=== PATIENT | female | born 1935 | race Caucasian/White ===

== ENCOUNTER 2018-11-09 20:38 | Emergency (ER) | payer OTHER | END 2018-11-10 04:15 | disposition home or self-care (01) | LOC: JER 11-10 01:25 | DX: I47.1 Supraventricular tachycardia (principal); I10 Essential (primary) hypertension; Z86.011 Personal history of benign neoplasm of the brain ==

== ENCOUNTER 2019-03-12 07:59 | Inpatient (IN) | payer OTHER ==
[2019-03-12] MEDS ORDERED: SODIUM CHLORIDE 500 ML IV STA ×3 (08:45→12:35)
[2019-03-12 09:03] LABS: BASO % 0.3 % (0-2.0); HEMATOCRIT 39.9 % (32.4-45.2); HEMOGLOBIN 13.3 GM/dL (10.7-15.3); LYMPH % 14.2 % (8-40); MCH 32.2 pg (25.7-33.7); MCHC 33.3 g/dl (32.0-36.0); MEAN CELL VOLUME 96.6 fl (80-96); MEAN PLT VOLUME 10.1 fl (7.5-11.1); MONO % 7.8 % (3.8-10.2); NEUT % 76.7 % (42.8-82.8); PLATELET COUNT 186 K/MM3 (134-434); RBC 4.13 M/mm3 (3.60-5.2); RDW 14.2 % (11.6-15.6)
[2019-03-12 09:58] LABS: ALBUMIN 3.7 g/dl (3.4-5.0); BILIRUBIN,TOTAL 0.4 mg/dL (0.2-1); BLOOD UREA NITROGEN 24.8 mg/dL (7-18); CALCIUM 8.7 mg/dL (8.5-10.1); CREATININE 0.9 mg/dL (0.55-1.3); POTASSIUM 4.2 mmol/L (3.5-5.1); TOT PROT 6.7 g/dl (6.4-8.2)
[2019-03-12 09:59] LABS: PH,URINE 7.5 (5.0-8.0); URINE APPEARANCE CLEAR; URINE BILIRUBIN NEGATIVE (NEGATIVE); URINE COLOR YELLOW; URINE GLUCOSE (UA) NEGATIVE (NEGATIVE); URINE KETONE NEGATIVE (NEGATIVE); URINE LEUK ESTERASE NEGATIVE (NEGATIVE); URINE NITRITE NEGATIVE (NEGATIVE); URINE PROTEIN NEGATIVE (NEGATIVE); URINE UROBILINOGEN 0.2 mg/dL (0.2-1.0)
[2019-03-12] MEDS ORDERED: LOSARTAN POTASSIUM 50 MG TABLET (FP) PO ONE (12:24)
[2019-03-12] MEDS ORDERED: LOSARTAN POTASSIUM 50 MG TABLET (FP) ONE (12:45)
[2019-03-12] MEDS ORDERED: METOPROLOL TARTRATE 50 MG TABLET (FP) ONE (12:46)
--- NOTE | 2019-03-12 14:32 | EKG ---
Test Reason : Blood Pressure : / mmHG Vent. Rate : 084 BPM Atrial Rate : 084 BPM P-R Int : 186 ms QRS Dur : 092 ms QT Int : 374 ms P-R-T Axes : 048 -18 063 degrees QTc Int : 441 ms NORMAL SINUS RHYTHM NORMAL ECG WHEN COMPARED WITH ECG OF 09-NOV-2018 22:11, NO SIGNIFICANT CHANGE WAS FOUND Confirmed by CHELSIE HUNTER MD ([id number]) on 03/12/2019 2:31:44 PM Referred By: Confirmed By:CHELSIE HUNTER MD
--- NOTE | 2019-03-12 16:02 | PDOC ---
Documentation entered by Jasmin Ortega SCRIBE, acting as scribe for Yannick Dyson MD. Yannick Dyson MD: This documentation has been prepared by the Shnanon garcía Sammi, SCRIBE, under my direction and personally reviewed by me in its entirety. I confirm that the documentation accurately reflects all work, treatment, procedures, and medical decision making performed by me. History of Present Illness - General Chief Complaint: Injury Stated Complaint: FALL Time Seen by Provider: 03/12/19 08:10 - History of Present Illness Initial Comments: 03/12/19 09:11 The patient is an 84 year old female who was BIBA from [facility] for evaluation s/p fall this morning when getting out of bed with weakness and lightheadedness prior to incident. Denies LOC, head or neck trauma. She endorses another fall last week without evaluation. Medical history: HTN, meningioma PCP: Horace Past History - Past Medical History Allergies/Adverse Reactions: Allergies Allergy/AdvReac Type Severity Reaction Status Date / Time codeine Allergy Verified 03/12/19 08:12 Penicillins Allergy Verified 03/12/19 08:12 Home Medications: Ambulatory Orders Losartan Potassium [Cozaar] 100 mg PO DAILY 11/09/18 Metoprolol Succinate 50 mg PO DAILY 11/09/18 COPD: No HTN: Yes - Psycho Social/Smoking Cessation Hx Smoking History: Never smoked Have you smoked in the past 12 months: No Information on smoking cessation initiated: No Hx Alcohol Use: No Drug/Substance Use Hx: No Review of Systems - Review of Systems Comments:: 03/12/19 09:11 CONSTITUTIONAL: +weakness. No fever, no chills EYES: No visual changes ENT: No ear pain, no sore throat CARDIOVASCULAR: No chest pain, no palpitations RESPIRATORY: No cough, no SOB GI: No abdominal pain, no nausea, no vomiting, no constipation, no diarrhea GENITOURINARY: No dysuria, no frequency, no hematuria MUSKULOSKELETAL: +low back pain. +Right should pain. SKIN: No rash NEURO: +lightheaded. No headache *Physical Exam - Vital Signs Last Vital Signs Temp Pulse Resp BP Pulse Ox 97.4 F L 87 18 194/99 H 99 03/12/19 08:04 03/12/19 08:04 03/12/19 08:04 03/12/19 08:04 03/12/19 08:04 - Physical Exam Comments: 03/12/19 09:11 CONSTITUTIONAL: A&Ox3, Well-appearing; well-nourished; in no apparent distress HEAD: Normocephalic; atraumatic EYES: +mild ptosis left upper lid. PERRL; EOM intact ENMT: External appears normal; normal oropharynx NECK: Supple; non-tender; no cervical lymphadenopathy CARD: +2 of 6 ejection systolic murmur. Normal S1, S2; rubs, or gallops RESP: Normal chest excursion with respiration; breath sounds clear and equal bilaterally; no wheezes, rhonchi, or rales CHEST: +Reproducible left anterior chest wall tenderness, midclavicular line 3rd -4th intercostal space BACK: +Midline and paraspinal tenderness to L1-L4 ABD: Soft, non-distended; non-tender; no palpable organomegaly, no palpable hernias EXT: +left hip tenderness. Normal ROM in all four extremities; distal pulses intact SKIN: Warm, dry, no rash NEURO: Normal speech, cranial nerves II-XII intact, negative pronator drift, moving all extremities ED Treatment Course - LABORATORY CBC & Chemistry Diagram: 03/12/19 08:00 03/12/19 08:00 - ADDITIONAL ORDERS Additional order review: Laboratory Results 03/12/19 03/12/19 08:30 08:00 Sodium 143 Potassium 4.2 Chloride 106 Carbon Dioxide 31 Anion Gap 5 L BUN 24.8 H Creatinine 0.9 Est GFR (CKD-EPI)AfAm 67.10 Est GFR (CKD-EPI)NonAf 57.90 Random Glucose 99 Calcium 8.7 Total Bilirubin 0.4 AST 13 L ALT 12 L Alkaline Phosphatase 102 Creatine Kinase 66 Troponin I 0.07 H Total Protein 6.7 Albumin 3.7 Urine Color Yellow Urine Appearance Clear Urine pH 7.5 Ur Specific [place] 1.011 Urine Protein Negative Urine Glucose (UA) Negative Urine Ketones Negative Urine Blood Negative Urine Nitrite Negative Urine Bilirubin Negative Urine Urobilinogen 0.2 Ur Leukocyte Esterase Negative 03/12/19 08:00 RBC 4.13 MCV 96.6 H MCHC 33.3 RDW 14.2 MPV 10.1 Neutrophils % 76.7 D Lymphocytes % 14.2 D Monocytes % 7.8 Eosinophils % 1.0 Basophils % 0.3 - RADIOLOGY Radiology Studies Ordered: Category Date Time Status HEAD CT WITHOUT CONTRAST [CT] Stat CT Scan 03/12/19 15:50 Ordered CHEST - PA [RAD] Stat Radiology 03/12/19 08:44 Completed HIP & PELVIS-LEFT [RAD] Stat Radiology 03/12/19 08:44 Completed SPINE-LUMBAR SACRAL [RAD] Stat Radiology 03/12/19 08:44 Completed - Medications Given in the ED: ED Medications Discontinued Medications Generic Name Dose Route Start Last Admin Trade Name Freq PRN Reason Stop Dose Admin Sodium Chloride 500 mls @ 500 mls/hr 03/12/19 08:45 03/12/19 08:45 Normal Saline - IV 03/12/19 09:44 500 mls/hr ASDIR STA Administration Sodium Chloride 500 mls @ 500 mls/hr 03/12/19 11:20 03/12/19 12:51 Normal Saline - IV 03/12/19 12:19 500 mls/hr ASDIR STA Administration Sodium Chloride 500 mls @ 500 mls/hr 03/12/19 12:35 03/12/19 12:35 Normal Saline - IV 03/12/19 13:34 500 mls/hr ASDIR STA Administration Losartan Potassium 100 mg 03/12/19 12:24 03/12/19 12:51 Cozaar - PO 03/12/19 12:25 100 mg ONCE ONE Administration Metoprolol Succinate 50 mg 03/12/19 12:24 03/12/19 12:51 Toprol Xl - PO 03/12/19 12:25 50 mg ONCE ONE Administration Medical Decision Making - Medical Decision Making 03/12/19 16 Patient is an 84-year-old female with history of a large meningioma who presents to the ER after a fall preceded by symptoms of dizziness and lightheadedness. Patient denied LOC or head injury as a result of her fall. On initial evaluation, no focal neurological deficits were identified. Radiological studies revealed no evidence of LS spine or hip/pelvic injury. Patient received IV fluids and antihypertensive medications. On reassessment, patient reports that she is improved but is unable to stand on her own with an assistance of a walker. At this time, I will obtain repeat CT of head to evaluate for enlarged meningioma and or brain edema. Will admit. Discharge - Discharge Information Problems reviewed: Yes Clinical Impression/Diagnosis: Dizziness, Light-headedness, Meningioma Condition: Fair - Admission Yes - Follow up/Referral Referrals: Yoko Vu MD [Primary Care Provider] - - Patient Discharge Instructions - Post Discharge Activity
[2019-03-12] MEDS ORDERED: cloNIDine HCL 0.1 MG TABLET ONE (18:38)
[2019-03-12] MEDS ORDERED: cloNIDine HCL 0.1 MG TABLET PO ONE (19:25)
--- NOTE | 2019-03-12 19:45 | HP ---
Admitting History and Physical - Admission History of Present Illness: 03/12/19 09:11 The patient is an 84 year old female who was BIBA from [facility] for evaluation s/p fall this morning when getting out of bed with weakness and lightheadedness prior to incident. Denies LOC, head or neck trauma. She endorses another fall last week without evaluation. Patient well known to me - seen yesterday for follow up. Known to have large meningioma which has resulted in unsteady gait / loss of vision on left side and loss oh hearing onleft side . Evaluated by NS ( Dr Douglas ) approx 6 month ago and more [place] [facility]-- she has opted for no intervention as of yesterday, today open for consideration. She reports lightheadedness has been there prior to the fall but unable to say how long -- "I am always falling " Medical history: HTN, meningioma History Source: Patient, Medical Record Limitations to Obtaining History: Poor Historian - Past Medical History DATA PROCESSING EQUIPMENT REPAIRER: Yes: Other (meningioma with surrounding edema and hydrocephalus) Cardiovascular: Yes: HTN. No: OK Reproductive: Yes: Postmenopausal ...: No - Smoking History Smoking history: Never smoked Have you smoked in the past 12 months: No - Alcohol/Substance Use Hx Alcohol Use: No History of Substance Use: reports: None - Social History Usual Living Arrangement: Yes: Alone ADL: Independent History of Recent Travel: No Home Medications - Allergies Allergies/Adverse Reactions: Allergies Allergy/AdvReac Type Severity Reaction Status Date / Time codeine Allergy Verified 03/12/19 08:12 Penicillins Allergy Verified 03/12/19 08:12 - Home Medications Home Medications: Ambulatory Orders Losartan Potassium [Cozaar] 100 mg PO DAILY 11/09/18 Metoprolol Succinate 50 mg PO DAILY 11/09/18 Amlodipine Besylate [Norvasc -] 5 mg PO DAILY 30 Days #30 tablet 03/18/19 Carbamazepine [Tegretol -] 100 mg PO BID-MID 30 Days #90 tab.chew 03/18/19 Dexamethasone [Decadron -] 4 mg PO BID 7 Days #20 tablet 03/18/19 Pantoprazole Sodium [Protonix] 40 mg PO DAILY 30 Days #30 tablet. 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 HENT: reports: Hearing Loss (on left side) Neck: reports: No Symptoms Cardiovascular: reports: No Symptoms Respiratory: reports: No Symptoms Gastrointestinal: reports: No Symptoms Genitourinary: reports: No Symptoms Breasts: reports: No Symptoms Reported Musculoskeletal: reports: Muscle Weakness Integumentary: reports: No Symptoms Neurological: reports: Change in Speech, Incoordination, Pre-Existing Deficit, Unsteady Gait, Weakness Endocrine: reports: No Symptoms Hematology/Lymphatic: reports: No Symptoms Psychiatric: reports: Depression Physical Examination Vital Signs: Vital Signs Temperature 97.1 F L 03/12/19 17:59 Pulse Rate 72 03/12/19 17:59 Respiratory Rate 17 03/12/19 17:59 Blood Pressure 207/97 H 03/12/19 17:59 O2 Sat by Pulse Oximetry (%) 97 03/12/19 17:59 Constitutional: Yes: Well Nourished, No Distress, Calm Eyes: Yes: Conjunctiva Clear, EOM Intact HENT: Yes: Atraumatic, Normocephalic Neck: Yes: Supple, Trachea Midline Cardiovascular: Yes: Regular Rate and Rhythm Respiratory: Yes: Regular, CTA Bilaterally Gastrointestinal: Yes: Normal Bowel Sounds, Soft ...Rectal Exam: Yes: Deferred Renal/: Yes: WNL Breast(s): Yes: WNL Musculoskeletal: Yes: Muscle Weakness Extremities: Yes: WNL. No: Deformity Edema: No Peripheral Pulses WNL: Yes Integumentary: Yes: WNL Neurological: Yes: Alert, Oriented, Confusion, Loss of Sensation, Pre-Existing Deficit, Unsteady Gait Psychiatric: Yes: Alert, Oriented Labs: CBC, BMP 03/12/19 08:00 03/12/19 08:00 Impression: No definite interval change is noted. 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 Associated mass effect is seen upon the tyron and midbrain. Edema is again visualized within the tyron, midbrain and left inferior thalamus. Prominent ventricular dilatation is noted probably representing a combination of obstructive hydrocephalus and ex vacuo dilatation. Periventricular hypodensity is again seen probably representing a combination of edema secondary to transependymal resorption of cerebrospinal fluid on the basis of obstructive hydrocephalus and chronic microvascular ischemic changes Problem List - Problems (1) Hypertension Code(s): I10 - ESSENTIAL (PRIMARY) HYPERTENSION (2) Dizziness Code(s): R42 - DIZZINESS AND GIDDINESS (3) Light-headedness Code(s): R42 - DIZZINESS AND GIDDINESS (4) Meningioma Code(s): D32.9 - BENIGN NEOPLASM OF MENINGES, UNSPECIFIED Assessment/Plan The patient is an 84 year old female who was BIBA from [facility] for evaluation s/p fall morning of admission, when getting out of bed with weakness and lightheadedness prior to incident. Denies LOC, head or neck trauma. She endorses another fall last week without evaluation. She has a hx of multiple falls. Patient well known to me - seen day prior to admission for follow up; Known to have large meningioma which has resulted in unsteady gait / loss of vision on left side and loss oh hearing on left side . Evaluated by NS ( Dr Douglas ) approx 6 month ago and more recently [place] [facility] [place]-- she has opted for no intervention. 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
[2019-03-13 00:05] VITALS: BMI 26.4
[2019-03-13 07:42] LABS: HEMATOCRIT 35.1 % (32.4-45.2); HEMOGLOBIN 11.9 GM/dL (10.7-15.3); MCH 32.4 pg (25.7-33.7); MCHC 33.9 g/dl (32.0-36.0); MEAN CELL VOLUME 95.6 fl (80-96); MEAN PLT VOLUME 10.1 fl (7.5-11.1); PLATELET COUNT 162 K/MM3 (134-434); RBC 3.67 M/mm3 (3.60-5.2); RDW 14.1 % (11.6-15.6); WHITE BLOOD COUNT 3.7 K/mm3 (4.0-10.0)
[2019-03-13 08:23] LABS: BLOOD UREA NITROGEN 17.8 mg/dL (7-18); CALCIUM 8.4 mg/dL (8.5-10.1); CREATININE 0.8 mg/dL (0.55-1.3); MAGNESIUM 2.1 mg/dL (1.8-2.4); POTASSIUM 3.7 mmol/L (3.5-5.1)
--- NOTE | 2019-03-13 09:49 | PN ---
Progress Note (short form) - Note Progress Note: 84 y/o femlae BIBA from [facility] s/p fall / dizziness. Denies pain and dizziness at this time. Vital Signs Period Temp Pulse Resp BP Sys/Becerra Pulse Ox Last 24 Hr 97.1 F-98.9 F 65-80 17-20 131-207/67-97 97-98 CBC, BMP 03/13/19 07:00 03/13/19 07:00 HEENT- NL Neck- Supple Lungs- CTAB Heart- S1/S2 Abd- Soft, NT Ext- No LE edema Active Medications Losartan Potassium (Losartan Potassium) 100 mg PO DAILY THERESA Metoprolol Succinate (Toprol Xl -) 50 mg PO DAILY THERESA #HTN - BP stable - Continue BB and ARB #Fall/ Dizziness/ Meningioma - Monitor dizziness - Neuro consult - PT eval -UA neg Problem List - Problems (1) Hypertension Code(s): I10 - ESSENTIAL (PRIMARY) HYPERTENSION (2) Dizziness Code(s): R42 - DIZZINESS AND GIDDINESS (3) Light-headedness Code(s): R42 - DIZZINESS AND GIDDINESS (4) Meningioma Code(s): D32.9 - BENIGN NEOPLASM OF MENINGES, UNSPECIFIED
[2019-03-13] MEDS ORDERED: PT OWN MED DRAWER 7, Y5N ONE (09:56)
[2019-03-13] MEDS ORDERED: LOSARTAN POTASSIUM 100 MG TABLET PO SCH (10:00)
[2019-03-13] MEDS: LOSARTAN POTASSIUM 50 MG TABLET (FP) PO SCH (11:19)
[2019-03-13] MEDS ORDERED: cloNIDine HCL 0.1 MG TABLET PO ONE (14:40)
[2019-03-13] MEDS: amLODIPine BESYLATE 5 MG TABLET (FP) PO SCH (18:07)
[2019-03-14 08:02] LABS: BASO % 0.8 % (0-2.0); EOS % 3.4 % (0-4.5); HEMATOCRIT 37.2 % (32.4-45.2); HEMOGLOBIN 12.7 GM/dL (10.7-15.3); MCH 32.4 pg (25.7-33.7); MCHC 34.1 g/dl (32.0-36.0); MEAN CELL VOLUME 95.1 fl (80-96); MEAN PLT VOLUME 9.6 fl (7.5-11.1); MONO % 8.5 % (3.8-10.2); NEUT % 56.3 % (42.8-82.8); PLATELET COUNT 170 K/MM3 (134-434); RBC 3.92 M/mm3 (3.60-5.2); RDW 13.6 % (11.6-15.6); WHITE BLOOD COUNT 4.4 K/mm3 (4.0-10.0)
[2019-03-14 08:25] LABS: BLOOD UREA NITROGEN 20.9 mg/dL (7-18); CALCIUM 8.9 mg/dL (8.5-10.1); CREATININE 0.8 mg/dL (0.55-1.3)
[2019-03-14] MEDS: amLODIPine BESYLATE 5 MG TABLET (FP) PO SCH (10:12)
[2019-03-14] MEDS: LOSARTAN POTASSIUM 50 MG TABLET (FP) PO SCH (10:13)
--- NOTE | 2019-03-14 11:17 | PN ---
Progress Note (short form) - Note Progress Note: 84 y/o female found sitting in bed. Denies pain and dizziness. Vital Signs Period Temp Pulse Resp BP Sys/Becerra Pulse Ox Last 24 Hr 97.6 F-98.9 F 63-87 18-20 130-201/56-94 98 CBC, BMP 03/14/19 07:33 03/14/19 07:33 HENT- NL Neck- Trachea midline Lungs- CTAB Heart- S1/S2 Abd- soft, Nt Ext- No LE edema Active Medications Amlodipine Besylate (Norvasc -) 5 mg PO DAILY [facility] Last Admin: 03/14/19 10:12 Dose: 5 mg Losartan Potassium (Cozaar -) 100 mg PO DAILY [facility] Last Admin: 03/14/19 10:13 Dose: 100 mg Metoprolol Succinate (Toprol Xl -) 50 mg PO DAILY [facility] Last Admin: 03/14/19 10:14 Dose: 50 mg #HTN - BP stable - Continue home meds #Fall/ Dizziness/ Meningioma - Neuro consult - PT eval - UA neg/ C& S neg Problem List - Problems (1) Hypertension Code(s): I10 - ESSENTIAL (PRIMARY) HYPERTENSION (2) Dizziness Code(s): R42 - DIZZINESS AND GIDDINESS (3) Light-headedness Code(s): R42 - DIZZINESS AND GIDDINESS (4) Meningioma Code(s): D32.9 - BENIGN NEOPLASM OF MENINGES, UNSPECIFIED
--- NOTE | 2019-03-14 16:39 | CON.NEURO ---
Consult - History of Present Illness History of Present Illness: 84 year old female who was BIBA from [facility] for evaluation s/p fall this morning when getting out of bed with weakness and lightheadedness prior to incident. Denies LOC, head or neck trauma. She endorses another fall last week without evaluation. Patie Known to have large meningioma which has resulted in unsteady gait / loss of vision on left side and loss oh hearing onleft side . Evaluated by NS ( Dr Douglas ) approx 6 month ago and more recently at [facility] [place]pt and neurology-- ( last week) it was dsicussed with her with that team that surgical options would not be safe option given age etc. She does states that she is getting more electric pains to the left face and lost her hearing L ear inb last 6 months, Impression: No definite interval change is noted. 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 Associated mass effect is seen upon the tyron and midbrain. Edema is again visualized within the tyron, midbrain and left inferior thalamus. Prominent ventricular dilatation is noted probably representing a combination of obstructive hydrocephalus and ex vacuo dilatation. 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 No: DE ...: No - Alcohol/Substance Use Hx Alcohol Use: No History of Substance Use: reports: None - Smoking History Smoking history: Never smoked Have you smoked in the past 12 months: No - Social History ADL: Independent History of Recent Travel: No Home Medications - Allergies Allergies/Adverse Reactions: Allergies Allergy/AdvReac Type Severity Reaction Status Date / Time codeine Allergy Verified 03/12/19 08:12 Penicillins Allergy Verified 03/12/19 08:12 - Home Medications Home Medications: Ambulatory Orders Losartan Potassium [Cozaar] 100 mg PO DAILY 11/09/18 Metoprolol Succinate 50 mg PO DAILY 11/09/18 Physical Exam-Neuro Vital Signs: Vital Signs Temperature 98.6 F 03/14/19 13:43 Pulse Rate 71 03/14/19 13:43 Respiratory Rate 18 03/14/19 13:43 Blood Pressure 162/71 03/14/19 13:43 O2 Sat by Pulse Oximetry (%) 98 03/13/19 21:00 Labs: CBC, BMP 03/14/19 07:33 03/14/19 07:33 - Neuro Exam Level Of Consciousness: Yes: Alert (awake, alert, H /L L, mild left facial, V2 sensitivity L, no focal weakness, reflexes symmetric) Problem List - Problems (1) Gait abnormality Code(s): R26.9 - UNSPECIFIED ABNORMALITIES OF GAIT AND MOBILITY (2) Meningioma Code(s): D32.9 - BENIGN NEOPLASM OF MENINGES, UNSPECIFIED Assessment/Plan 84 year old female who was BIBA from [facility] for evaluation s/p fall this morning when getting out of bed with weakness and lightheadedness prior to incident. Denies LOC, head or neck trauma. She endorses another fall last week without evaluation. Patie Known to have large meningioma which has resulted in unsteady gait / loss of vision on left side and loss oh hearing onleft side . Evaluated by NS ( Dr Douglas ) approx 6 month ago and more recently at [facility] [place] dept and neurology-- ( last week) it was dsicussed with her with that team that surgical options would not be safe option given age etc. She does states that she is getting more electric pains to the left face and lost her hearing L ear inb last 6 months, Impression: No definite interval change is noted. 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 Associated mass effect is seen upon the tyron and midbrain. Edema is again visualized within the tyron, midbrain and left inferior thalamus. Prominent ventricular dilatation is noted probably representing a combination of obstructive hydrocephalus and ex vacuo dilatation. Periventricular hypodensity is again seen probably representing a combination of edema secondary to transependymal resorption of cerebrospinal fluid on the basis of obstructive hydrocephalus and chronic microvascular ischemic changes AP : progressive trigeminal cistern meningioma L side with resultant deficits in gait, CN 5/7/8 involvement and possible mild obstructive hydrocephalus. GIven that she has a recent surgical opinion do not think another surgical opinion is necessary>unfortunately her gait issues may be from a component of hydrocephalus --though that not even be a not an ideal solution and has it own complication rate. She admits she does try to do things and maneuver more than she should and some of her safety issues may lie in her using a wheelchair , less bending etc.. Can try low dose pulse decadron to see if may relief some pressure off the tyron/ brainstem. Also can add low dose tegtretol for trigeminal pain . DR LANGSTON
[2019-03-15 08:27] LABS: ALBUMIN 3.2 g/dl (3.4-5.0); BILIRUBIN,TOTAL 0.5 mg/dL (0.2-1); BLOOD UREA NITROGEN 27.6 mg/dL (7-18); CALCIUM 8.7 mg/dL (8.5-10.1); CREATININE 0.9 mg/dL (0.55-1.3); POTASSIUM 4.2 mmol/L (3.5-5.1); TOT PROT 5.9 g/dl (6.4-8.2)
[2019-03-15] MEDS ORDERED: PT OWN MED DRAWER 7, Y5N ONE ×5 (09:06→22:10)
[2019-03-15] MEDS: amLODIPine BESYLATE 5 MG TABLET (FP) PO SCH (09:09)
[2019-03-15] MEDS: LOSARTAN POTASSIUM 50 MG TABLET (FP) PO SCH (09:10)
[2019-03-15] MEDS: carBAMazepine 100 MG TAB.CHEW PO SCH ×2 (11:32→18:37)
--- NOTE | 2019-03-15 13:45 | DS ---
Physical Examination Vital Signs: Vital Signs Temperature 98.1 F 03/15/19 09:02 Pulse Rate 80 03/15/19 09:02 Respiratory Rate 20 03/15/19 09:02 Blood Pressure 135/76 03/15/19 09:02 O2 Sat by Pulse Oximetry (%) 97 03/15/19 10:15 Findings/Remarks: The patient is an 84 year old female who was BIBA from [facility] for evaluation s/p fall this morning when getting out of bed with weakness and lightheadedness prior to incident. Denies LOC, head or neck trauma. She endorses another fall last week without evaluation. Patient well known to me - seen yesterday for follow up. Known to have large meningioma which has resulted in unsteady gait / loss of vision on left side and loss oh hearing onleft side . Evaluated by [facility] ( Dr Douglas ) approx 6 month ago and more recently at [facility] and neurology-- she has opted for no intervention as of yesterday, today open for consideration. She reports lightheadedness has been there prior to the fall but unable to say how long -- "I am always falling " Patient evaluated by neurology -- case discussed with Dr stroud, will start treatment treatment for trigeminal neuralgia however no intervention for menegioma. clinical exam today is at baseline -- unsteady gait, requires walker / no hearing from Left side and no vision from left side. -- she is oriented and able to express her wishes. Impression: No definite interval change is noted. 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 Associated mass effect is seen upon the tyron and midbrain. Edema is again visualized within the tyron, midbrain and left inferior thalamus. Prominent ventricular dilatation is noted probably representing a combination of obstructive hydrocephalus and ex vacuo dilatation. Periventricular hypodensity is again seen probably representing a combination of edema secondary to transependymal resorption of cerebrospinal fluid on the basis of obstructive hydrocephalus and chronic microvascular ischemic changes Per neurology -- Dr Stroud AP : progressive trigeminal cistern meningioma L side with resultant deficits in gait, CN 5/7/8 involvement and possible mild obstructive hydrocephalus. GIven that she has a recent surgical opinion do not think another surgical opinion is necessary>unfortunately her gait issues may be from a component of hydrocephalus --though that not even be a not an ideal solution and has it own complication rate. She admits she does try to do things and maneuver more than she should and some of her safety issues may lie in her using a wheelchair , less bending etc.. Can try low dose pulse decadron to see if may relief some pressure off the tyron/ brainstem. Also can add low dose tegtretol for trigeminal pain . Constitutional: Yes: Well Nourished, No Distress, Calm, Other (facial asymmetry) Eyes: Yes: Conjunctiva Clear, EOM Intact HENT: Yes: Atraumatic, Normocephalic Neck: Yes: Supple, Trachea Midline Cardiovascular: Yes: Regular Rate and Rhythm Respiratory: Yes: CTA Bilaterally Gastrointestinal: Yes: Normal Bowel Sounds, Soft ...Rectal Exam: Yes: Deferred Renal/: Yes: WNL Breast(s): Yes: WNL Musculoskeletal: Yes: Muscle Weakness, Other (lack of balance / unsteady /lack of coordination) Extremities: No: Deformity Edema: No Peripheral Pulses WNL: Yes Integumentary: Yes: WNL Neurological: Yes: Alert, Oriented, Ataxia, Facial Droop, Pre-Existing Deficit, Unsteady Gait Psychiatric: Yes: Alert, Oriented Labs: CBC, BMP 03/14/19 07:33 03/15/19 07:10 Discharge Summary Problems reviewed: Yes Reason For Visit: DIZZINESS MENINGIOMA Current Active Problems Dizziness (Acute) Gait abnormality (Acute) Hypertension (Acute) Light-headedness (Acute) Meningioma (chronic Acute) Hospital Course: uncompluicated - no improvement of symptoms neurology evaluation no surgical intervention Patient declines more assistance at home due to cost Condition: Fair - Instructions Disposition: HOME - Home Medications Comprehensive Discharge Medication List: Ambulatory Orders Losartan Potassium [Cozaar] 100 mg PO DAILY 11/09/18 Metoprolol Succinate 50 mg PO DAILY 11/09/18 amlodipine 5 mg q day -- new medication
[2019-03-15] MEDS: DEXAMETHASONE 4 MG TABLET (FP) PO SCH ×2 (15:25→22:10)
[2019-03-16] MEDS: DEXAMETHASONE 4 MG TABLET (FP) PO SCH ×3 (06:20→21:45)
[2019-03-16] MEDS ORDERED: PT OWN MED DRAWER 7, Y5N ONE (09:24)
[2019-03-16] MEDS: amLODIPine BESYLATE 5 MG TABLET (FP) PO SCH (09:44)
[2019-03-16] MEDS: LOSARTAN POTASSIUM 50 MG TABLET (FP) PO SCH (09:44)
[2019-03-16] MEDS: carBAMazepine 100 MG TAB.CHEW PO SCH ×2 (09:44→17:56)
--- NOTE | 2019-03-16 13:53 | PN ---
Progress Note (short form) - Note Progress Note: patient seen andexamined in room /sitting in chair / slumped to right side + facial droop / admits needs more help and is lightheaded when ambulating agrees to STR at this time Vital Signs Period Temp Pulse Resp BP Sys/Becerra Pulse Ox Last 24 Hr 97.7 F-98.7 F 69-76 20-20 140-166/75-96 98-100 HEENT facial asymmetry / speech grossly clear oriented X3 neck supple heart S1/S2 reg lungs clear bilat abs soft non tender ext no edema CBC, BMP 03/14/19 07:33 03/15/19 07:10 Microbiology 03/12/19 08:30 Urine - Urine Clean Catch Urine Culture - Final Normal Urogenital Mirela Active Medications Amlodipine Besylate (Norvasc -) 5 mg PO DAILY [facility] Last Admin: 03/16/19 09:44 Dose: 5 mg Carbamazepine (Tegretol -) 100 mg PO BID-MID [facility] Last Admin: 03/16/19 09:44 Dose: 100 mg Dexamethasone (Decadron -) 4 mg PO TID [facility] Last Admin: 03/16/19 06:20 Dose: 4 mg Losartan Potassium (Cozaar -) 100 mg PO DAILY [facility] Last Admin: 03/16/19 09:44 Dose: 100 mg Metoprolol Succinate (Toprol Xl -) 50 mg PO DAILY [facility] Last Admin: 03/16/19 09:44 Dose: 50 mg # 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 / vision / hearing ( left side ) appreciate Neuro consult -- now on tegretol and decadron reports no improvement [facility] will require wheelchair for safety if no improvement with PT # HTN amlodipine added - improved Bp control continue with Losartan and metoprolol will contact daughter to discuss options for STR and safer d/c -- possible [facility] plans consider re visiting surgical options Problem List - Problems (1) Hypertension Code(s): I10 - ESSENTIAL (PRIMARY) HYPERTENSION (2) Dizziness Code(s): R42 - DIZZINESS AND GIDDINESS (3) Light-headedness Code(s): R42 - DIZZINESS AND GIDDINESS (4) Meningioma Code(s): D32.9 - BENIGN NEOPLASM OF MENINGES, UNSPECIFIED
[2019-03-17] MEDS: DEXAMETHASONE 4 MG TABLET (FP) PO SCH ×3 (05:37→22:07)
[2019-03-17] MEDS: amLODIPine BESYLATE 5 MG TABLET (FP) PO SCH (10:46)
[2019-03-17] MEDS: LOSARTAN POTASSIUM 50 MG TABLET (FP) PO SCH (10:46)
[2019-03-17] MEDS: carBAMazepine 100 MG TAB.CHEW PO SCH ×2 (10:47→17:55)
[2019-03-17] MEDS ORDERED: PT OWN MED DRAWER 7, Y5N ONE ×3 (14:40→17:29)
[2019-03-18] MEDS: DEXAMETHASONE 4 MG TABLET (FP) PO SCH ×2 (06:59→14:02)
[2019-03-18] MEDS ORDERED: PT OWN MED DRAWER 7, Y5N ONE (07:16)
[2019-03-18] MEDS: LOSARTAN POTASSIUM 50 MG TABLET (FP) PO SCH (09:33)
[2019-03-18] MEDS: carBAMazepine 100 MG TAB.CHEW PO SCH (09:33)
[2019-03-18] MEDS: amLODIPine BESYLATE 5 MG TABLET (FP) PO SCH (09:33)
--- NOTE | 2019-03-18 11:34 | PN ---
Progress Note (short form) - Note Progress Note: patient seen and examined in room laying in bed comfortable easily confused Vital Signs Period Temp Pulse Resp BP Sys/Becerra Pulse Ox Last 24 Hr 97.7 F-98.7 F 69-76 20-20 140-166/75-96 98-100 HEENT facial asymmetry / facial droop / speech grossly clear oriented X3 neck supple heart S1/S2 reg lungs clear bilat abs soft non tender ext no edema CBC, BMP 03/14/19 07:33 03/15/19 07:10 Microbiology 03/12/19 08:30 Urine - Urine Clean Catch Urine Culture - Final Normal Urogenital Mirela Active Medications Amlodipine Besylate (Norvasc -) 5 mg PO DAILY [facility] Last Admin: 03/16/19 09:44 Dose: 5 mg Carbamazepine (Tegretol -) 100 mg PO BID-MID [facility] Last Admin: 03/16/19 09:44 Dose: 100 mg Dexamethasone (Decadron -) 4 mg PO TID [facility] Last Admin: 03/16/19 06:20 Dose: 4 mg Losartan Potassium (Cozaar -) 100 mg PO DAILY [facility] Last Admin: 03/16/19 09:44 Dose: 100 mg Metoprolol Succinate (Toprol Xl -) 50 mg PO DAILY [facility] Last Admin: 03/16/19 09:44 Dose: 50 mg # 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 / vision / hearing ( left side ) appreciate Neuro consult -- now on tegretol and decadron reports no improvement [facility] will require wheelchair for safety if no improvement with PT # HTN amlodipine added - improved Bp control continue with Losartan and metoprolol will contact daughter to discuss options for STR and safer d/c -- 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
--- NOTE | 2019-03-18 12:46 | PN ---
Progress Note (short form) - Note Progress Note: POC discussed with daughter Luz Walls # [phone] agrees with STR and understands need for reconditioning / safe parameters for ADLs prior to return to [facility] Vital Signs Period Temp Pulse Resp BP Sys/Becerra Pulse Ox Last 24 Hr 97.7 F-98.7 F 69-76 20-20 140-166/75-96 98-100 HEENT facial asymmetry / speech grossly clear oriented X3 , forgetful neck supple heart S1/S2 reg lungs clear bilat abs soft non tender ext no edema CBC, BMP 03/14/19 07:33 03/15/19 07:10 Microbiology 03/12/19 08:30 Urine - Urine Clean Catch Urine Culture - Final Normal Urogenital Mirela Active Medications Amlodipine Besylate (Norvasc -) 5 mg PO DAILY [facility] Last Admin: 03/18/19 09:33 Dose: 5 mg Carbamazepine (Tegretol -) 100 mg PO BID-MID [facility] Last Admin: 03/18/19 09:33 Dose: 100 mg Dexamethasone (Decadron -) 4 mg PO TID [facility] Last Admin: 03/18/19 06:59 Dose: 4 mg Losartan Potassium (Cozaar -) 100 mg PO DAILY [facility] Last Admin: 03/18/19 09:33 Dose: 100 mg Metoprolol Succinate (Toprol Xl -) 50 mg PO DAILY [facility] Last Admin: 03/18/19 09:33 Dose: 50 mg # 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 arrangements for transfer -probably today Problem List - Problems (1) Hypertension Code(s): I10 - ESSENTIAL (PRIMARY) HYPERTENSION (2) Dizziness Code(s): R42 - DIZZINESS AND GIDDINESS (3) Light-headedness Code(s): R42 - DIZZINESS AND GIDDINESS (4) Meningioma Code(s): D32.9 - BENIGN NEOPLASM OF MENINGES, UNSPECIFIED
[2019-03-18 16:33] VITALS: BP 153/89; PULSE 78; TEMP 98.7
== END 2019-03-18 17:33 | DRG 54 ==
LOC: JER 07:59 → JERBED 16:02 → J5S 16:39 → JSAMEDAYSX 16:57 → JERBED 18:04 → J5S 22:25
PROVIDERS: ADMIT Family Medicine; ATTEND Family Medicine
DX: D32.9 Benign neoplasm of meninges, unspecified (principal); G93.6 Cerebral edema; G91.1 Obstructive hydrocephalus; R42 Dizziness and giddiness; I10 Essential (primary) hypertension; G50.0 Trigeminal neuralgia; R29.810 Facial weakness
CPT/HCPCS: 36415; 70450-TC; 71045-TC-FY; 72100-TC-FY; 73523-TC-FY; 80048; 80053; 81003; 82550; 83735; 84443; 84484; 85025; 85027; 87086; 93005; 93010; 97116-GP; 97162-GP; 99283-25; J0735

== ENCOUNTER 2019-03-27 14:36 | Emergency (ER) | payer OTHER ==
--- NOTE | 2019-03-27 15:03 | PDOC ---
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 Reports that she has not had a bowel movement in 2 days, and was straining to try and go earlier today when she develop dizziness like "everything was spinning". This immediately resolved once she stopped straining. However, at some point (uncertain what relation there was to straining), patient passed out in bed, then woke up. Patient is unsure how long she was out for, but she guesses about a minute. Not sure if she fell or hit her head. Not having any current dizziness. Was unable to have bowel movement. Abdominal pain is worsened with palpation, but not by straining. Patient specifically denies CP, SOB, fevers/chills, N/V, urinary changes. Endorses chronic headaches. Past History - Past Medical History Allergies/Adverse Reactions: Allergies Allergy/AdvReac Type Severity Reaction Status Date / Time codeine Allergy Verified 03/12/19 08:12 Penicillins Allergy Verified 03/12/19 08:12 Home Medications: Ambulatory Orders Losartan Potassium [Cozaar] 100 mg PO DAILY 11/09/18 Metoprolol Succinate 50 mg PO DAILY 11/09/18 Amlodipine Besylate [Norvasc -] 5 mg PO DAILY 30 Days #30 tablet 03/18/19 Carbamazepine [Tegretol -] 100 mg PO BID-MID 30 Days #90 tab.chew 03/18/19 Omeprazole 40 mg PO DAILY 03/27/19 COPD: No HTN: Yes - Psycho Social/Smoking Cessation Hx Smoking History: Never smoked Have you smoked in the past 12 months: No Hx Alcohol Use: No Drug/Substance Use Hx: No Substance Use Type: None Hx Substance Use Treatment: No Review of Systems - Review of Systems Constitutional: No: Chills, Diaphoresis, Fever HEENTM: Yes: Blurred Vision (L eye, 2/2 meningioma), Hearing Loss (L ear, 2/2 meningioma) Respiratory: No: Cough, Shortness of Breath ABD/GI: Yes: Constipated (2 days). No: Abdominal Distended, Diarrhea, Nausea, Rectal Bleeding, Vomiting : No: Burning, Dysuria, Discharge, Frequency, Flank Pain, Hematuria Musculoskeletal: No: Back Pain, Neck Pain Neurological: No: Headache, Numbness, Tingling, Weakness *Physical Exam - Physical Exam Comments: 03/27/19 15:48 Gen: well-developed, well-nourished, NAD Neuro: AAOX4, reduced hearing and vision on L side, SILT, CN II-XII otherwise intact HEENT: atraumatic, prior craniotomy with incompletely melded skull, dry mucous membranes Neck: trachea midline, supple CV: regular rate, regular rhythm, no murmurs, rubs, or gallops Pulm: CTA b/l, no wheezing Abd: soft, non-distended, periumbilical and suprapubic tenderness MSK: full ROM, intact pulses Extr: no edema, no deformities Skin: warm, dry, multiple patchy skin changes ED Treatment Course - LABORATORY CBC & Chemistry Diagram: 03/27/19 16:40 03/27/19 16:40 Medical Decision Making - Medical Decision Making 03/27/19 15:59 Concern for syncope 2/2 cardiac etiology v seizure v worsening meningioma. - CBC, CMP, trop - EKG, CXRport - UA/UC - DX abdomen to look for stool burden - CT head non con - likely admit 03/27/19 16:36 EKG at 73 bpm, normal sinus, poor baseline, no ST segment elevation or T wave inversions 03/27/19 17:43 CXR without acute pathology, similar to prior, DX abdomen without significant stool burden. 03/27/19 17:44 WBC 12.3, CBC and CMP otherwise unremarkable. Trop 0.03, improved from recent admission, lipase wnl. 03/27/19 18:34 CT head without interval change, X rays without acute pathology. 03/27/19 19:[address] Vu, who stated that if we did not find any acute changes, she would much prefer if the patient was discharged to [facility] to follow up with Dr. Vu tomorrow. Will dc patient with close follow up. Discharge - Discharge Information Problems reviewed: Yes Clinical Impression/Diagnosis: Syncope Condition: Good Disposition: [facility] - Admission No - Follow up/Referral Referrals: Yoko Vu MD [Primary Care Provider] - - Patient Discharge Instructions Patient Printed Discharge Instructions: DI for Syncope in Adults (Fainting) Additional Instructions: You were seen after an episode of fainting. Your labs, imaging, EKG, and X rays did not show any acute changes. We spoke with your primary care doctor, Dr. Vu, who will follow up with you tomorrow. Please make sure that you see her tomorrow. Return to the ED if you develop worsening symptoms. - Post Discharge Activity
[2019-03-27 15:21] VITALS: BMI 25.0
--- NOTE | 2019-03-27 16:14 | PDOC ---
Documentation entered by Glenna Brambila SCRIBE, acting as scribe for Josh Garvey MD. Josh Garvey MD: This documentation has been prepared by the Patty garcía Adrianna, SCRIBE, under my direction and personally reviewed by me in its entirety. I confirm that the documentation accurately reflects all work, treatment, procedures, and medical decision making performed by me. Attending Attestation - Resident Resident Name: VelazquezOzzie - ED Attending Attestation I have performed the following: I have examined & evaluated the patient, The case was reviewed & discussed with the resident, I agree w/resident's findings & plan - HPI HPI: 03/27/19 16:06 84y/o F h/o large meningioma with recent admission for fall in the setting of loss of balance/vision changes, started on medication for trigeminal neuralgia, treated for hydrocephalus presents now from [facility] after syncopal episode. Patient was at her baseline state of health, was ambulating in the hallway and suddenly felt lightheaded and lost consciousness. She fell to the ground, and next remembers a crowd being around her. Denies any chest pain or palpitations or shortness of breath prior to the incident, denies any tongue biting or incontinence, there was no report of any seizure-like activity. She denies any focal deficits associated with the episode, resents now for evaluation without any pain or complaints. Patient does report history of unexplained tachycardias, was evaluated by cardiology in the past but no definitive diagnosis given. - Physicial Exam PE: 03/27/19 16:08 Vital signs stable, afebrile Well-appearing lying comfortably in stretcher speaking full sentences Extraocular movements are intact, pupils are equal Neck is supple Heart is regular without ectopy, lungs are clear Abdomen benign Neurological exam is nonfocal, subtle asymmetry of left face (unchanged from prior), but no deficits - Medical Decision Making 03/27/19 16:09 84-year-old female with known large meningioma deemed nonoperative presents now with syncopal episode. Possible arrhythmia given her history of tach arrhythmia , possible seizure. Labs, urinalysis CT head Checks x-ray, EKG Will need telemetry monitoring. discuss with pcp Dr. Vu, neuro [facility]. Heart Score/ECG Review #1 ECG reviewed & interpreted by me at: 14:48 General ECG Interpretation: Sinus Rhythm, Normal Rate (73), Normal Intervals ( qtc 425), No acute ischemic changes (q in III/AVF) Compared to previous ECG there are: No significant change (c/w 03/12/19)
[2019-03-27 17:03] LABS: BASO % 0.2 % (0-2.0); EOS % 0.5 % (0-4.5); HEMATOCRIT 44.5 % (32.4-45.2); HEMOGLOBIN 14.9 GM/dL (10.7-15.3); MCH 32.2 pg (25.7-33.7); MCHC 33.4 g/dl (32.0-36.0); MEAN CELL VOLUME 96.3 fl (80-96); MEAN PLT VOLUME 10.6 fl (7.5-11.1); MONO % 7.7 % (3.8-10.2); NEUT % 77.6 % (42.8-82.8); PLATELET COUNT 113 K/MM3 (134-434); RBC 4.62 M/mm3 (3.60-5.2); RDW 14.3 % (11.6-15.6); WHITE BLOOD COUNT 12.3 K/mm3 (4.0-10.0)
[2019-03-27 17:32] LABS: ALBUMIN 3.2 g/dl (3.4-5.0); BILIRUBIN,TOTAL 0.4 mg/dL (0.2-1); BLOOD UREA NITROGEN 22.6 mg/dL (7-18); CALCIUM 8.5 mg/dL (8.5-10.1); CREATININE 1.2 mg/dL (0.55-1.3); POTASSIUM 4.2 mmol/L (3.5-5.1); TOT PROT 6.2 g/dl (6.4-8.2)
[2019-03-27 20:14] VITALS: PULSE 78
[2019-03-28 01:45] VITALS: BP 179/95; TEMP 98.2
--- NOTE | 2019-03-28 12:52 | EKG ---
Test Reason : Blood Pressure : / mmHG Vent. Rate : 073 BPM Atrial Rate : 073 BPM P-R Int : 182 ms QRS Dur : 088 ms QT Int : 386 ms P-R-T Axes : 065 -21 029 degrees QTc Int : 425 ms POOR DATA QUALITY, INTERPRETATION MAY BE ADVERSELY AFFECTED NORMAL SINUS RHYTHM NONSPECIFIC ST ABNORMALITY LEFT AXIS DEVIATION Confirmed by NAVJOT ESPINOSA MD ([id number]) on 03/28/2019 12:52:19 PM Referred By: Confirmed By:NAVJOT ESPINOSA MD
== END 2019-03-28 02:12 ==
LOC: JER 14:36
DX: R55 Syncope and collapse (principal); I10 Essential (primary) hypertension; D32.0 Benign neoplasm of cerebral meninges; R26.89 Other abnormalities of gait and mobility; H54.62 Unqualified visual loss, left eye, normal vision right eye; H91.92 Unspecified hearing loss, left ear; R29.6 Repeated falls; Z90.5 Acquired absence of kidney; Z85.828 Personal history of other malignant neoplasm of skin; Z88.0 Allergy status to penicillin; Z88.5 Allergy status to narcotic agent
CPT/HCPCS: 36415; 70450-TC; 71045-TC-FY; 74018-TC-FY; 80053; 83690; 84484; 85025; 93005; 93010; 99283-25